=== PATIENT | female | born 1995 | race Caucasian/White ===

== ENCOUNTER 2017-02-15 13:43 | Emergency (ER) | payer SELFPAY ==
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
[2017-02-15 15:41] VITALS: BP 130/70
== END 2017-02-15 15:35 | disposition home or self-care (01) ==
LOC: MW.ED 13:43
DX: T76.31XA Adult psychological abuse, suspected, initial encounter (principal); S09.90XA Unspecified injury of head, initial encounter
CPT/HCPCS: 70450; 70450-26; 72125; 72125-26; 99284; 99284-25

== ENCOUNTER 2019-12-04 08:46 | Inpatient (IN) | payer MEDICAID ==
[~2019-12-04 08:46] MED LIST: Oxytocin/Lactated Ringers 30 UNIT/500 ML BAG IV SCH
[2019-12-04] MEDS ORDERED: Acetaminophen 500 MG Tab PO PRN ×2 (08:59)
[2019-12-04] MEDS ORDERED: Witch Hazel Medicated Pads 40/Jar TOP PRN (08:59)
[2019-12-04] MEDS ORDERED: Ibuprofen 400 MG Tab PO PRN (08:59)
[2019-12-04] MEDS ORDERED: oxyCODONE 5 MG Tab PO PRN (08:59)
[2019-12-04] MEDS ORDERED: Lanolin 100% Cream 7 GM Tube TOP PRN (08:59)
[2019-12-04] MEDS ORDERED: Bisacodyl 10 MG Supp RECTAL PRN (08:59)
[2019-12-04] MEDS ORDERED: Benzocaine/Menthol 20%-0.5% Spray 78 GM Cannister TOP PRN (08:59)
[2019-12-04] MEDS ORDERED: Ibuprofen 800 MG Tab PO PRN (08:59)
--- NOTE | 2019-12-04 10:20 | PCM.DEL ---
L & D Note - General Info Date of Service: 12/04/19 - Delivery Note Labor: Spontaneous Delivery Outcome: Livebirth Anesthesia Type: None Laceration: Periurethral (hemostatic, not repaired) Placenta: Intact, Spontaneous Cord: 3 Vessels Delivery Comments (Free Text/Narrative):: 24 yo presented to L&D via EMS (ground ambulance) approximately one hour following delivery at home (arrived at L&D at 0823). She has had no care and states that she was not aware she was as she has abnormal menstrual cycles and "it's common for me to go months without a period". She reports that she "thought I was constipated". GBS unknown, rubella status unknown, blood type unknown. EMS reports baby delivered into toilet; viable male, spontaneous cry. APGARs unknown; weight pending. Baby to warmer with nurse present for assessment. Upon presentation, placenta within vagina; delivered grossly intact, claudio, meconium stained; 3VC. EBL unknown. Perineum intact. Small, right-sided periurethral skin tear noted; hemostatic, not repaired. Fundus firm; scant lochia rubra. Orders given for IV pitocin. Mom left in stable condition with nurse at bedside for assessment. - General Info Date of Service: 12/04/19 Functional Status: Reports: Pain Controlled - Review of Systems General: Reports: No Symptoms HEENT: Reports: No Symptoms Pulmonary: Reports: No Symptoms Cardiovascular: Reports: No Symptoms Gastrointestinal: Reports: No Symptoms Genitourinary: Reports: No Symptoms Musculoskeletal: Reports: No Symptoms Skin: Reports: No Symptoms Neurological: Reports: No Symptoms Psychiatric: Reports: No Symptoms - Patient Data Weight - Most Recent: 200 lb Lab Results Last 24 Hours: Laboratory Results - last 24 hr 12/04/19 12/04/19 Range/Units 08:44 08:46 WBC 33.57 H (4.0-11.0) K/uL RBC 4.01 L (4.30-5.90) M/uL Hgb 11.1 L (12.0-16.0) g/dL Hct 34.8 L (36.0-46.0) % MCV 86.8 (80.0-98.0) fL MCH 27.7 (27.0-32.0) pg MCHC 31.9 (31.0-37.0) g/dL RDW Std Deviation 44.4 (28.0-62.0) fl RDW Coeff of Rosemary 14 (11.0-15.0) % Plt Count 379 (150-400) K/uL MPV 10.40 (7.40-12.00) fL Nucleated RBC % 0.0 /100WBC Nucleated RBCs # 0 K/uL Blood Type A POSITIVE Antibody Screen NEGATIVE Med Orders - Current: Current Medications Acetaminophen (Tylenol Extra Strength) 500 mg PO Q4H PRN PRN Reason: Pain Acetaminophen (Tylenol Extra Strength) 1,000 mg PO Q4H PRN PRN Reason: Pain Benzocaine/Menthol (Dermoplast Pain Relief 20%-0.5% [place]) 78 gm TOP ASDIRECTED PRN PRN Reason: Perineal Comfort Measure Bisacodyl (Dulcolax) 10 mg RECTAL ONETIME PRN PRN Reason: Constipation Docusate Sodium (Colace) 100 mg PO BID PRN PRN Reason: Constipation Emollient Ointment (Lansinoh Hpa) 0 gm TOP ASDIRECTED PRN PRN Reason: Sore Nipples Ibuprofen (Motrin) 400 mg PO Q4H PRN PRN Reason: Pain Ibuprofen (Motrin) 800 mg PO Q6H PRN PRN Reason: Pain Oxycodone HCl (Oxycodone) 5 mg PO Q2H PRN PRN Reason: Pain Witch Bhumi (Tucks) 1 pad TOP ASDIRECTED PRN PRN Reason: comfort care - Exam General: Alert, Oriented, Cooperative, Mild Distress Lungs: Normal Respiratory Effort GI/Abdominal Exam: Soft, Tender (Female) Exam: Normal External Exam Back Exam: Full Range of Motion Extremities: Normal Range of Motion Skin: Warm, Dry, Intact Neurological: No New Focal Deficit, Normal Speech, Normal Tone Psy/Mental Status: Alert, Anxious - Problem List & Annotations (1) Unplanned , unknown if wanted SNOMED Code(s): 989216685 Code(s): Z34.90 - ENCNTR FOR SUPRVSN OF NORMAL , UNSP, UNSP TRIMESTER Status: Acute Priority: High Current Visit: Yes (2) (spontaneous vaginal delivery) SNOMED Code(s): 086545015 Code(s): O80 - ENCOUNTER FOR FULL-TERM UNCOMPLICATED DELIVERY Status: Acute Priority: High Current Visit: Yes - Problem List Review Problem List Initiated/Reviewed/Updated: Yes - My Orders Last 24 Hours: My Active Orders 12/04/19 08:44 HEPATITIS B SURFACE AG [CHEM] Routine HEPATITIS C ANTIBODY WITH REFL [CHEM] Routine RPR (SYPHILIS SERO) W/ RFLX [REF] Routine RUBELLA ANTIBODY IGG [CHEM] Routine 12/04/19 08:50 Patient Status [ADT] Routine May Shower [RC] ASDIRECTED Up ad Chloé [RC] ASDIRECTED Vital Signs [RC] PER UNIT ROUTINE CHLAMYDIA AND GONORRHEA BY TMA Routine CULTURE GROUP B STREP [RM] Routine DRUG SCREEN, URINE [URCHEM] Routine UA RFX SANTO AND CULT IF INDIC [URIN] Routine Assess Lochia [WOMSER] Per Unit Routine Assess Uterine Involution [WOMSER] Per Unit Routine Peripheral IV Discontinue [OM.PC] Routine Resuscitation Status Routine 12/04/19 08:52 CORONAVIRUS COVID-19 PCR PHL Urgent 12/04/19 08:59 Acetaminophen [Tylenol Extra Strength] 1,000 mg PO Q4H PRN Acetaminophen [Tylenol Extra Strength] 500 mg PO Q4H PRN Benzocaine/Menthol [Dermoplast Pain Relief 20%-0.5% [place]] 78 gm TOP ASDIRECTED PRN Docusate Sodium [Colace] 100 mg PO BID PRN Ibuprofen [Motrin] 400 mg PO Q4H PRN Ibuprofen [Motrin] 800 mg PO Q6H PRN Lanolin [Lansinoh HPA] See Dose Instructions TOP ASDIRECTED PRN bisacodyL [Dulcolax] 10 mg RECTAL ONETIME PRN oxyCODONE 5 mg PO Q2H PRN witch Bhumi [Tucks] 1 pad TOP ASDIRECTED PRN 12/04/19 Lunch Regular Diet [DIET] 12/05/19 05:11 HEMOGLOBIN/HEMATOCRIT,HH [HEME] Timed - Plan Plan:: Admit A: 24 yo presented to L&D via EMS (ground ambulance) approximately one hour following delivery at home (arrived at L&D at 0823). She has had no care and states that she was not aware she was as she has abnormal menstrual cycles and "it's common for me to go months without a period". She reports that she "thought I was constipated". GBS unknown, rubella status unknown, blood type unknown. EMS reports baby delivered into toilet; viable male, spontaneous cry. APGARs unknown; weight pending. Baby to warmer with nurse present for assessment. Upon presentation, placenta within vagina; delivered grossly intact, claudio, meconium stained; 3VC. EBL unknown. Perineum intact. Small, right-sided periurethral skin tear noted; hemostatic, not repaired. Fundus firm; scant lochia rubra. Orders given for IV pitocin. Mom left in stable condition with nurse at bedside for assessment. P: All labs; recommend mental health consult; mother reports she is unsure whether she desires to raise the baby; otherwise routine plan of care; Dr. Almanzar updated.
[2019-12-04] MEDS: Docusate Sodium 100 MG Cap PO PRN (13:10)
[2019-12-05] MEDS ORDERED: Clindamycin Phosphate in D5W 900 MG in Premix Bag 1 BAG IV ONE ×2 (08:12)
[2019-12-05] MEDS: metroNIDAZOLE 250 MG Tab PO SCH ×2 (09:19→21:03)
[2019-12-05] MEDS: Docusate Sodium 100 MG Cap PO PRN ×2 (09:20→21:03)
[2019-12-05 12:03] LABS: C.TRACHOMATIS BY TMA Negative (Negative); N.GONORRHOEAE BY TMA Negative (Negative)
--- NOTE | 2019-12-05 16:41 | PCM.PNPP ---
- General Info Date of Service: 12/05/19 Admission Dx/Problem (Free Text): Juliana is a 24 yo PPD1 S/P uncomplicated to term NBM at home; No PNC, +UDS (methamphetamine). Reports no problems or concerns at this time. Patient is unengaged with involvement, desires foster care but is undecided at this time. in nursery and being cared for nursing staff, bottle fed. [facility] social work team at bedside this am to discuss options of mother and , unable to reach FOB at this time. Patient reports she is eating, voiding, ambulating independently and without difficulty. Patient denies any problems or concerns at this time except mild-moderate intermittent uterine cramping relieved with Tylenol and Ibuprofen. Patient reports small to medium vaginal bleeding no clots. Functional Status: Reports: Pain Controlled - Review of Systems General: Reports: No Symptoms HEENT: Reports: No Symptoms Pulmonary: Reports: No Symptoms Cardiovascular: Reports: No Symptoms Gastrointestinal: Reports: No Symptoms Genitourinary: Reports: No Symptoms Musculoskeletal: Reports: No Symptoms Skin: Reports: No Symptoms Neurological: Reports: No Symptoms Psychiatric: Reports: No Symptoms - General Info Date of Service: 12/05/19 - Patient Data Vital Signs - Most Recent: Last Vital Signs Temp 98.5 F 12/05/19 12:00 Pulse 103 H 12/05/19 12:00 Resp 20 12/05/19 12:00 BP 110/63 12/05/19 12:00 Pulse Ox 98 12/05/19 12:00 Weight - Most Recent: 200 lb Lab Results - Last 24 Hours: Laboratory Results - last 24 hr 12/04/19 12/05/19 Range/Units 11:00 04:48 WBC 33.06 H (4.0-11.0) K/uL RBC 3.51 L (4.30-5.90) M/uL Hgb 9.8 L (12.0-16.0) g/dL Hct 30.5 L (36.0-46.0) % MCV 86.9 (80.0-98.0) fL MCH 27.9 (27.0-32.0) pg MCHC 32.1 (31.0-37.0) g/dL RDW Std Deviation 45.3 (28.0-62.0) fl RDW Coeff of Rosemary 14 (11.0-15.0) % Plt Count 396 (150-400) K/uL MPV 10.20 (7.40-12.00) fL Nucleated RBC % 0.0 /100WBC Nucleated RBCs # 0 K/uL Chlamydia/GC Source GENITAL C.trachomatis RNA (TMA) Negative (Negative) N.gonorrhoeae RNA (TMA) Negative (Negative) Micro Results - Last 24 Hours: Microbiology 12/04/19 12:15 Urine Culture - Final Urine, Clean Catch MIXED MICHAEL >100,000 CFU/ML Med Orders - Current: Current Medications Acetaminophen (Tylenol Extra Strength) 500 mg PO Q4H PRN PRN Reason: Pain Acetaminophen (Tylenol Extra Strength) 1,000 mg PO Q4H PRN PRN Reason: Pain Benzocaine/Menthol (Dermoplast Pain Relief 20%-0.5% [place]) 78 gm TOP ASDIRECTED PRN PRN Reason: Perineal Comfort Measure Last Admin: 12/04/19 13:10 Dose: 1 canister Documented by: Bisacodyl (Dulcolax) 10 mg RECTAL ONETIME PRN PRN Reason: Constipation Docusate Sodium (Colace) 100 mg PO BID PRN PRN Reason: Constipation Last Admin: 12/05/19 09:20 Dose: 100 mg Documented by: Emollient Ointment (Lansinoh Hpa) 0 gm TOP ASDIRECTED PRN PRN Reason: Sore Nipples Oxytocin/Lactated Ringer's (Pitocin In Lr 30 Units/500 Ml) 30 unit in 500 mls @ 500 mls/hr IV ASDIRECTED [facility] Last Admin: 12/04/19 08:46 Dose: 500 mls/hr Documented by: Ibuprofen (Motrin) 400 mg PO Q4H PRN PRN Reason: Pain Ibuprofen (Motrin) 800 mg PO Q6H PRN PRN Reason: Pain Last Admin: 12/04/19 13:10 Dose: 800 mg Documented by: Metronidazole (Metronidazole) 500 mg PO Q12HR [facility] Last Admin: 12/05/19 09:19 Dose: 500 mg Documented by: Oxycodone HCl (Oxycodone) 5 mg PO Q2H PRN PRN Reason: Pain Witch Bhumi (Tucks) 1 pad TOP ASDIRECTED PRN PRN Reason: comfort care Last Admin: 12/04/19 13:10 Dose: 1 tub Documented by: Discontinued Medications Clindamycin Phosphate 900 mg/ (Premix) 50 mls @ 100 mls/hr IV ONETIME ONE Stop: 12/05/19 08:41 Last Admin: 12/05/19 09:14 Dose: 100 mls/hr Documented by: - Interaction Disposition, : [place] to Nursery Infant Interaction: Not Interacting Feeding: Bottle Fed Infant - Recovery Exam Fundal Tone: Firm Fundal Level: 2 Fingerbreadths Below Umbilicus Fundal Placement: Midline Lochia Amount: Scant Lochia Color: Rubra/Red Perineum Description: Other (see below) Other Perinuem Description: Periurethral tear Episiotomy/Laceration: Approximated Bladder Status: Voiding Urinary Elimination: Voided - Exam General: Alert, Oriented, Cooperative, No Acute Distress HEENT: Pupils Equal Neck: Supple Lungs: Clear to Auscultation, Normal Respiratory Effort Cardiovascular: Regular Rate, Regular Rhythm GI/Abdominal Exam: Normal Bowel Sounds, Soft, Non-Tender, No Organomegaly, No Distention, No Abnormal Bruit, No Mass, Pelvis Stable Extremities: Normal Inspection, Normal Range of Motion, Non-Tender, No Pedal Edema, Normal Capillary Refill Skin: Warm, Dry, Intact Wound/Incisions: Healing Well Psy/Mental Status: Alert, Other (Flat, aloof) - Problem List & Annotations (1) (spontaneous vaginal delivery) SNOMED Code(s): 938783262 Code(s): O80 - ENCOUNTER FOR FULL-TERM UNCOMPLICATED DELIVERY Status: Acute Priority: High Current Visit: Yes - Problem List Review Problem List Initiated/Reviewed/Updated: Yes - Plan Plan:: Hemodynamically stable, afebrile. Continue PO and IV antibiotics as ordered. Continue eating, voiding, ambulating independently. Plan to D/C in am pending labs. Dr. Almanzar notified and agreeable with POC.
[2019-12-05] MEDS ORDERED: Iron Polysaccharides Complex 150 MG Cap PO SCH (16:45)
[2019-12-06 05:31] VITALS: PULSE 86
[2019-12-06 07:38] VITALS: BP 104/72
--- NOTE | 2019-12-06 09:04 | PCM.DCSUM1 ---
Discharge Summary - Hospital Course Free Text/Narrative:: Discharge home. Follow up in 6 weeks for routine visit. Diagnosis: Stroke: No Modified Deepthi Scale: No Symptoms at All Modified Ralls Scale Score: 0 - Discharge Data Discharge Date: 12/06/19 Discharge Disposition: Home, Self-Care 01 Condition: Good - Referral to Home Health Primary Care Physician: PCP None - Discharge Diagnosis/Problem(s) (1) Unplanned , unknown if wanted SNOMED Code(s): 730650070 ICD Code: Z34.90 - ENCNTR FOR SUPRVSN OF NORMAL , UNSP, UNSP TRIMESTER Status: Acute Priority: High Current Visit: Yes (2) (spontaneous vaginal delivery) SNOMED Code(s): 722600540 ICD Code: O80 - ENCOUNTER FOR FULL-TERM UNCOMPLICATED DELIVERY Status: Acute Priority: High Current Visit: Yes - Patient Summary/Data Consults: Consultations 12/04/19 13:00 Consult to Case Management/Director Dermatology [CONS] Routine - Patient Instructions Diet: Usual Diet as Tolerated, Regular Diet as Tolerated, Drink 8-10+ Glasses/Day Driving: May Drive Today Showering/Bathing: May Shower Notify Provider of: Fever, Increased Pain, Swelling and Redness, Drainage, Nausea and/or Vomiting - Discharge Plan *PRESCRIPTION DRUG MONITORING PROGRAM REVIEWED*: Not Applicable *COPY OF PRESCRIPTION DRUG MONITORING REPORT IN PATIENT LORY: Not Applicable Prescriptions/Med Rec: metroNIDAZOLE 500 mg PO Q12HR 5 Days #10 tablet Ibuprofen [Motrin] 800 mg PO Q6H PRN #90 tablet PRN Reason: Pain Home Medications: Home Meds Ibuprofen [Motrin] 800 mg PO Q6H PRN #90 tablet 12/06/19 [Rx] metroNIDAZOLE 500 mg PO Q12HR 5 Days #10 tablet 12/06/19 [Rx] Oxygen Therapy Mode: Room Air Referrals: [facility] [Outside] Carli Vo, [place], SEC[employer] ANALYST [Mid-] - 01/14/20 2:00 pm - Discharge Summary/Plan Comment DC Time >30 min.: Yes - General Info Date of Service: 12/06/19 Admission Dx/Problem (Free Text: Juliana is a 24 yo PPD1 S/P uncomplicated to term NBM at home; No PNC, +UDS (methamphetamine). Reports no problems or concerns at this time. Patient is unengaged with involvement, desires foster care but is undecided at this time. in nursery and being cared for nursing staff, bottle fed. [facility] social work team at bedside this am to discuss options of mother and , unable to reach FOB at this time. Patient reports she is eating, voiding, ambulating independently and without difficulty. Patient denies any problems or concerns at this time except mild-moderate intermittent uterine cramping relieved with Tylenol and Ibuprofen. Patient reports small to medium vaginal bleeding no clots. Functional Status: Reports: Pain Controlled - Review of Systems General: Reports: No Symptoms HEENT: Reports: No Symptoms Pulmonary: Reports: No Symptoms Cardiovascular: Reports: No Symptoms Gastrointestinal: Reports: No Symptoms Genitourinary: Reports: No Symptoms Musculoskeletal: Reports: No Symptoms Skin: Reports: No Symptoms Neurological: Reports: No Symptoms Psychiatric: Reports: No Symptoms - Patient Data Vitals - Most Recent: Last Vital Signs Temp 97.4 F 12/06/19 07:38 Pulse 86 12/06/19 07:38 Resp 16 12/06/19 07:38 BP 104/72 12/06/19 07:38 Pulse Ox 100 12/06/19 07:38 Weight - Most Recent: 200 lb Lab Results - Last 24 hrs: Laboratory Results - last 24 hr 12/04/19 12/06/19 Range/Units 11:00 08:22 WBC 25.65 H (4.0-11.0) K/uL RBC 3.32 L (4.30-5.90) M/uL Hgb 9.3 L (12.0-16.0) g/dL Hct 29.1 L (36.0-46.0) % MCV 87.7 (80.0-98.0) fL MCH 28.0 (27.0-32.0) pg MCHC 32.0 (31.0-37.0) g/dL RDW Std Deviation 46.4 (28.0-62.0) fl RDW Coeff of Rosemary 15 (11.0-15.0) % Plt Count 360 (150-400) K/uL MPV 9.50 (7.40-12.00) fL Nucleated RBC % 0.0 /100WBC Nucleated RBCs # 0 K/uL Chlamydia/GC Source GENITAL C.trachomatis RNA (TMA) Negative (Negative) N.gonorrhoeae RNA (TMA) Negative (Negative) SANTO Results - Last 24 hrs: Microbiology 12/04/19 12:15 Urine Culture - Final Urine, Clean Catch MIXED MICHAEL >100,000 CFU/ML Med Orders - Current: Current Medications Acetaminophen (Tylenol Extra Strength) 500 mg PO Q4H PRN PRN Reason: Pain Acetaminophen (Tylenol Extra Strength) 1,000 mg PO Q4H PRN PRN Reason: Pain Benzocaine/Menthol (Dermoplast Pain Relief 20%-0.5% [place]) 78 gm TOP ASDIRECTED PRN PRN Reason: Perineal Comfort Measure Last Admin: 12/04/19 13:10 Dose: 1 canister Documented by: Bisacodyl (Dulcolax) 10 mg RECTAL ONETIME PRN PRN Reason: Constipation Docusate Sodium (Colace) 100 mg PO BID PRN PRN Reason: Constipation Last Admin: 12/05/19 21:03 Dose: 100 mg Documented by: Emollient Ointment (Lansinoh Hpa) 0 gm TOP ASDIRECTED PRN PRN Reason: Sore Nipples Oxytocin/Lactated Ringer's (Pitocin In Lr 30 Units/500 Ml) 30 unit in 500 mls @ 500 mls/hr IV ASDIRECTED [facility] Last Admin: 12/04/19 08:46 Dose: 500 mls/hr Documented by: Ibuprofen (Motrin) 400 mg PO Q4H PRN PRN Reason: Pain Ibuprofen (Motrin) 800 mg PO Q6H PRN PRN Reason: Pain Last Admin: 12/04/19 13:10 Dose: 800 mg Documented by: Metronidazole (Metronidazole) 500 mg PO Q12HR [facility] Last Admin: 12/05/19 21:03 Dose: 500 mg Documented by: Oxycodone HCl (Oxycodone) 5 mg PO Q2H PRN PRN Reason: Pain Polysaccharide Iron Complex (Ferrex 150) 150 mg PO DAILY [facility] Francisco Javier Tripathi (Tucks) 1 pad TOP ASDIRECTED PRN PRN Reason: comfort care Last Admin: 12/04/19 13:10 Dose: 1 tub Documented by: Discontinued Medications Clindamycin Phosphate 900 mg/ (Premix) 50 mls @ 100 mls/hr IV ONETIME ONE Stop: 12/05/19 08:41 Last Admin: 12/05/19 09:14 Dose: 100 mls/hr Documented by: - Exam General: Reports: Alert, Oriented, Cooperative, No Acute Distress Lungs: Reports: Normal Respiratory Effort (Female) Exam: Deferred Rectal (Female) Exam: Deferred Back Exam: Reports: Full Range of Motion Extremities: Normal Range of Motion, Non-Tender Neurological: Reports: No New Focal Deficit, Normal Speech, Normal Tone Psy/Mental Status: Reports: Alert, Normal Affect, Normal Mood
[2019-12-06] MEDS: metroNIDAZOLE 250 MG Tab PO SCH (09:16)
[2019-12-06] MEDS: Docusate Sodium 100 MG Cap PO PRN (09:17)
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
== END 2019-12-06 11:52 | disposition home or self-care (01) | DRG 806 ==
LOC: MW.OB 08:46 → OBSVTOIN 08:50 → MW.OB 15:00
PROVIDERS: ADMIT Nurse Practitioner Women's Health; ATTEND Obstetrics & Gynecology
PROC: 10E0XZZ Delivery of Products of Conception, External Approach (ICD-10-PCS; principal; 2019-12-04)
DX: O77.0 Labor and delivery complicated by meconium in amniotic fluid (principal); O99.324 Drug use complicating childbirth; Z37.0 Single live birth; F15.90 Other stimulant use, unspecified, uncomplicated; Z20.828 Contact with and (suspected) exposure to other viral communicable diseases; Z3A.00 Weeks of gestation of pregnancy not specified
CPT/HCPCS: 36415; 59414; 80305-QW; 81001; 82962; 85027; 86592; 86762; 86803; 86850; 86900; 86901; 87081; 87086; 87340; 87491; 87591; A9270-GY; J3490; U0002

== ENCOUNTER 2021-05-23 20:31 | Emergency (ER) | payer MEDICAID ==
[2021-05-23] MEDS ORDERED: Ketorolac 30 MG/ML SDV IVPUSH ONE (20:47)
[2021-05-23] MEDS ORDERED: Sodium Chloride 0.9% 1,000 ML IV ONE (20:47)
[2021-05-23] MEDS ORDERED: Metoclopramide 10 MG/2 ML SDV IVPUSH ONE (20:47)
[2021-05-23] MEDS ORDERED: diphenhydrAMINE 50 MG/ML SDV IVPUSH ONE (20:47)
[2021-05-23] MEDS ORDERED: Acetaminophen/Butalbital/Caffeine 325-50-40 MG Tab PO ONE (20:48)
[2021-05-23 21:37] VITALS: BP 126/61; PULSE 70
[2021-05-23 21:38] LABS: BLOOD UREA NITROGEN,BUN 9 mg/dL (7.0-18.0); CARBON DIOXIDE,CO2 24.6 mmol/L (21.0-32.0); CHLORIDE,CL 103 mmol/L (98-107); GLUCOSE RANDOM 107 mg/dL (74-106); POTASSIUM,K 3.7 mmol/L (3.5-5.1); SODIUM,NA 137 mmol/L (136-145)
[2021-05-23 21:55] LABS: CORONAVIRUS COVID-19 NAA NEGATIVE (NEGATIVE); INFLUENZA A NAA NEGATIVE (NEGATIVE); INFLUENZA B NAA NEGATIVE (NEGATIVE)
== END 2021-05-23 22:05 | disposition home or self-care (01) ==
LOC: MW.ED 20:31
DX: G43.909 Migraine, unspecified, not intractable, without status migrainosus (principal); B34.9 Viral infection, unspecified; Z20.822 Contact with and (suspected) exposure to COVID-19
CPT/HCPCS: 0240U; 36415; 71045; 80053; 83735; 84703; 85025; 86140; 96374; 96375; 99284; A9270; J1200; J1885; J2765; J7030; 99283

== ENCOUNTER 2021-07-25 17:25 | Emergency (ER) | payer MEDICAID ==
[2021-07-25 17:44] VITALS: BP 126/85; PULSE 63
[2021-07-25] MEDS ORDERED: Amoxicillin/Clavulanate K 875-125 MG Tab PO ONE (17:49)
== END 2021-07-25 18:01 | disposition home or self-care (01) ==
LOC: MW.ED 17:25
DX: K04.7 Periapical abscess without sinus (principal)
CPT/HCPCS: 99282; A9270; 99283

== ENCOUNTER 2021-11-25 19:43 | Emergency (ER) | payer MEDICAID ==
[2021-11-25] MEDS ORDERED: Lidocaine 2% Viscous Solution 15 ML UD PO ONE (19:57)
[2021-11-25] MEDS ORDERED: Benzocaine 20% Topical Spray UD MUCMEM ONE (19:57)
[2021-11-25] MEDS ORDERED: Amoxicillin/Clavulanate K 875-125 MG Tab PO ONE (20:01)
[2021-11-25 20:28] VITALS: BP 104/68; PULSE 83
== END 2021-11-25 20:31 | disposition home or self-care (01) ==
LOC: MW.ED 19:43
DX: K04.7 Periapical abscess without sinus (principal)
CPT/HCPCS: 99282; A9270

== ENCOUNTER 2021-12-09 16:34 | Emergency (ER) | payer MEDICAID ==
[2021-12-09] MEDS ORDERED: Lactated Ringers 1,000 ML IV STA (16:51)
[2021-12-09] MEDS ORDERED: Ampicillin/Sulbactam Na 3 GM in Sodium Chloride 0.9% 100 ML IV STA (16:51)
[2021-12-09] MEDS ORDERED: Dexamethasone 10 MG/ML SDV IVPUSH STA (16:59)
[2021-12-09] MEDS ORDERED: Propofol 200 MG/20 ML SDV ONE (17:24)
[2021-12-09] MEDS ORDERED: Succinylcholine 200 MG/10 ML MDV IV ONE (17:29)
[2021-12-09] MEDS ORDERED: propofoL 100 ML IV SCH ×2 (17:30→19:00)
[2021-12-09] MEDS ORDERED: Rocuronium 100 MG/10 ML MDV IV ONE (17:30)
[2021-12-09 17:41] LABS: CARBON DIOXIDE,CO2 22.7 mmol/L (21.0-32.0); POTASSIUM,K 3.9 mmol/L (3.5-5.1)
[2021-12-09] MEDS ORDERED: fentaNYL 100 MCG/2 ML SDV IVPUSH ONE (18:07)
[2021-12-09] MEDS ORDERED: fentaNYL/Normal Saline 2,500 MCG in Premix Bag 1 BAG IV STA (18:09)
[2021-12-09] MEDS ORDERED: Midazolam 5 MG/ML SDV ONE (18:15)
[2021-12-09] MEDS ORDERED: propofoL 100 ML ONE (18:48)
[2021-12-09] MEDS ORDERED: Midazolam 5 MG/ML SDV IVPUSH ONE (18:53)
[2021-12-09] MEDS ORDERED: Rocuronium 100 MG/10 ML MDV IVPUSH ONE (20:08)
[2021-12-09 20:50] LABS: CORONAVIRUS COVID-19 NAA NEGATIVE (NEGATIVE); INFLUENZA A NAA NEGATIVE (NEGATIVE); INFLUENZA B NAA NEGATIVE (NEGATIVE)
[2021-12-10 01:19] VITALS: BP 112/68; PULSE 82
== END 2021-12-09 20:35 ==
LOC: MW.ED 16:34
DX: K12.2 Cellulitis and abscess of mouth (principal); Z79.899 Other long term (current) drug therapy; Z20.822 Contact with and (suspected) exposure to COVID-19
CPT/HCPCS: 0240U; 31500; 36415; 36600; 51702; 71045; 80053; 82803; 83605; 83735; 85025; 85610; 87040; 96361; 96365; 96375; 99285; J0295; J0330; J1100; J2250; J2704; J3010; J7050; J7120

== ENCOUNTER 2023-03-30 17:52 | Emergency (ER) | payer BC, MEDICAID ==
[2023-03-30 19:33] LABS: APPEARANCE,URINE SLT CLOUDY; BILIRUBIN,URINE NEGATIVE (NEGATIVE); COLOR,URINE YELLOW; GLUCOSE,URINE NEGATIVE (NEGATIVE); KETONES,URINE NEGATIVE (NEGATIVE); LEUKOCYTE ESTERASE,URINE MODERATE (NEGATIVE); NITRITE,URINE NEGATIVE (NEGATIVE); OCCULT BLOOD,URINE SMALL (NEGATIVE); PROTEIN,URINE NEGATIVE (NEGATIVE); UROBILINOGEN,URINE 0.2 EU/dL (<2.0)
[2023-03-30 19:46] LABS: BASOPHILS ABSOLUTE AUTO 0.03 K/uL (0.00-0.20); BASOPHILS PERCENT AUTO 0.2 % (0.0-1.0); EOSINOPHILS ABSOLUTE AUTO 0.07 K/uL (0.00-0.45); EOSINOPHILS PERCENT AUTO 0.4 % (0.0-6.0); HEMATOCRIT 32.9 % (37.0-47.0); IMMATURE GRAN ABSOLUTE AUTO 0.07 K/uL (0.00-0.05); IMMATURE GRAN PERCENT AUTO 0.4 % (0.0-0.4); LYMPHOCYTES ABSOLUTE AUTO 2.66 K/uL (1.00-4.80); LYMPHOCYTES PERCENT AUTO 13.4 % (24.0-44.0); MEAN CORPUSCULAR HEMOGLOBIN 28.5 pg (28.0-32.0); MEAN CORPUSCULAR HGB CONC 33.4 g/dL (32.0-36.0); MEAN CORPUSCULAR VOLUME 85.2 fL (83.0-99.0); MEAN PLATELET VOLUME 9.7 fL (9.4-12.3); MONOCYTES ABSOLUTE AUTO 1.04 K/uL (0.00-0.80); MONOCYTES PERCENT AUTO 5.2 % (0.0-8.0); NEUTROPHILS ABSOLUTE AUTO 15.97 K/uL (1.80-7.70); NEUTROPHILS PERCENT AUTO 80.4 % (41.0-71.0); PLATELET COUNT,PLT 321 K/uL (150-400); RED BLOOD CELL COUNT 3.86 M/uL (4.10-5.30); WHITE BLOOD CELL COUNT,WBC 19.84 K/uL (3.9-11.3)
[2023-03-30 19:46] LABS: BACTERIA,URINE 2+ (NEGATIVE); MUCUS,URINE MODERATE (NONE-MOD); SQUAMOUS EPITHELIAL CELLS,UR MANY
[2023-03-30] MEDS: Acetaminophen 500 MG Tab PO ONE (20:06)
[2023-03-30 20:47] LABS: A/G RATIO 0.6 (0.9-1.6); ALBUMIN 2.5 g/dL (3.4-5.0); BILIRUBIN TOTAL 0.2 mg/dL (0.2-1.0); CALCIUM 8.5 mg/dL (8.5-10.1); CREATININE 0.6 mg/dL (0.6-1.0); EST CRCL DRUG DOSING (CG) 136.96 mL/min; PROTEIN TOTAL,TP 6.7 g/dL (6.4-8.2)
[2023-03-30] MEDS: Cephalexin 500 MG Cap PO ONE (21:11)
[2023-03-30 21:15] VITALS: BP 101/69; PULSE 81
== END 2023-03-30 21:15 | disposition home or self-care (01) ==
LOC: MW.ED 17:52
DX: O23.42 Unspecified infection of urinary tract in pregnancy, second trimester (principal); Z3A.21 21 weeks gestation of pregnancy; Z79.899 Other long term (current) drug therapy
CPT/HCPCS: 36415; 76801; 80053; 81001; 81025; 84702; 85025; 99284; A9270; 99283

== ENCOUNTER → 2024-11-18 | Emergency (ER) | payer SELFPAY ==
[~2024-11-18] MED LIST changes: +Lidocaine 2% Viscous Solution 15 ML UD PO ONE; -Oxytocin/Lactated Ringers 30 UNIT/500 ML BAG IV SCH
[2024-11-18 18:29] VITALS: BP 137/92; PULSE 98
[2024-11-18] MEDS: Benzocaine 20% Topical Spray UD MUCMEM ONE (18:46)
[2024-11-18] MEDS: Ketorolac 30 MG/ML SDV IM ONE (18:46)
== END | disposition home or self-care (01) ==
LOC: MW.ED 18:20
DX: K04.7 Periapical abscess without sinus (principal); K02.9 Dental caries, unspecified
CPT/HCPCS: 96372; 99282; A9270; J1885; 99283